=== PATIENT | female | born 1975 | race Caucasian/White ===

== ENCOUNTER 2020-02-12 17:08 | Emergency (ER) | payer SELFPAY ==
[2020-02-12 17:13] VITALS: Ht 157.5 cm
[2020-02-12 18:51] VITALS: BP 111/63
== END 2020-02-12 18:51 | disposition home or self-care (01) ==
LOC: ED 17:08
DX: T67.9XXA Effect of heat and light, unspecified, initial encounter (principal); R42 Dizziness and giddiness; R51 Headache; X58.XXXA Exposure to other specified factors, initial encounter; Y93.89 Activity, other specified; Y92.89 Other specified places as the place of occurrence of the external cause; Y99.8 Other external cause status
CPT/HCPCS: 82962; J8597